=== PATIENT | male | born 1995 | race Caucasian/White ===

== ENCOUNTER → 2017-03-31 15:50 | Outpatient (CLI) | payer OTHER, SELFPAY ==
[2017-03-31 18:10] LABS: CRP < 2.90 mg/L (0.0-3.0)
[2017-04-02 16:09] LABS: Endomysial Antibody IgA Negative (Negative); Immunoglobulin A 74 mg/dL (90-386)
[2017-04-03 12:31] LABS: t-Transglutaminase IgA <2 U/mL (0-3)
== END ==
PROVIDERS: Family Provider Family Medicine; PCP Family Medicine; Visit Provider Internal Medicine Gastroenterology
DX: R10.9 Unspecified abdominal pain (principal); R19.7 Diarrhea, unspecified
CPT/HCPCS: 36415; 82784; 83516; 86140; 86255

== ENCOUNTER → 2017-04-08 07:59 | Outpatient (CLI) | payer OTHER, SELFPAY ==
--- NOTE | 2017-04-08 08:03 | RAD_ITS ---
PROCEDURE: SMALL BOWEL SERIES DATE OF EXAMINATION: April 08, 2017.. INDICATION: Male, 22 years old. 2 month history of abdominal pain and diarrhea. PHYSICIAN: Shabbir Jain M.D. FLUOROSCOPY TIME (if supplied): (5 seconds) minutes/seconds TECHNIQUE: Radiographic and fluoroscopic images were taken of the small intestine following the ingestion of barium. COMPARISON: None. FINDINGS: A preliminary supine KUB was obtained. There is an unremarkable bowel gas pattern. Fecal material is present throughout the colon. The osseous structures are normal. The patient orally ingested approximately 12 ounces of thin barium Normal visualized fundus, body, and antrum of the stomach. Normal duodenal bulb, C-loop, and proximal jejunum. Normal visualized mucosal folds of the jejunum and ileum. There are no demonstrated dilatations, strictures, or masses of the small intestine. There is no mass displacement of the loops of small intestine. There is a normal motor pattern with barium reaching the colon within approximately 60 minutes. Spot films under fluoroscopic observation demonstrated a normal terminal ileum and ileocecal valve. RAD/Small Bowel Series Only IMPRESSION: Normal small bowel series. Electronically Signed: Shabbir Jain MD at 10:27 EST Tel [phone], Service support ,
== END ==
PROVIDERS: Family Provider Family Medicine; PCP Family Medicine; Visit Provider Internal Medicine Gastroenterology
DX: R19.7 Diarrhea, unspecified (principal); R10.9 Unspecified abdominal pain
CPT/HCPCS: 74250

== ENCOUNTER → 2017-04-11 15:06 | Outpatient (CLI) | payer OTHER, SELFPAY ==
[2017-04-14 16:10] LABS: Endomysial Antibody IgA Negative (Negative); Immunoglobulin A 70 mg/dL (90-386)
[2017-04-15 14:42] LABS: Immunoglobulin G 493 mg/dL (700-1600); t-Transglutaminase IgA <2 U/mL (0-3)
== END ==
PROVIDERS: Visit Provider Internal Medicine Gastroenterology
DX: R10.9 Unspecified abdominal pain (principal)
CPT/HCPCS: 36415; 82784; 83516; 86255